=== PATIENT | female | born 1995 | race Caucasian/White ===

== ENCOUNTER 2024-11-05 08:00 | Emergency (ER) | payer MEDICAID, SELFPAY ==
[2024-11-05 09:19] VITALS: BMI 31.3
[2024-11-05 09:27] VITALS: BP 122/89; PULSE 81; RESP 18; TEMP 36.7; O2SAT 98; BMI 31.8
--- NOTE | 2024-11-05 09:31 | XR_ITS ---
Examination: PA lateral chest 2 views TECHNIQUE: Upright PA lateral chest 2 views Exam date and time: November 05, 2024 0943 hours INDICATIONS: Congestion chest pain beginning 10 days ago. FINDINGS: Normal heart size No pneumonia or pulmonary edema Intact osseous structures IMPRESSION: No pneumonia identified
--- NOTE | 2024-11-05 10:40 | EDNOTE_ITS ---
Upper Respiratory Inf. RME/HPI General Chief Complaint: Flu Like Symptoms Stated Complaint: CXP/CONGESTION/RUNNY NOSE/EPPS FOR 10 DAYS Time Seen by Provider: 11/05/24 09:28 Arrival date/time: 11/05/24 08:00 29-year-old female with no significant medical problems and no chance presents the emergency department complaint of cough, congestion, runny nose, body aches and sore throat patient for symptoms ongoing for the last 10 days Limitations: no limitations Related Data Home Medications ?Medication ?Instructions ?Recorded ?Confirmed prenat.vits,marek,hvk-atod-iawyn 1 tab PO QDAY 06/28/21 07/25/23 Previous Rx's ?Medication ?Instructions ?Recorded azithromycin 500 mg tablet See Rx Instructions PO .COMPLEX #6 11/05/24 tabs fluconazole 150 mg tablet 150 mg PO Q3D 2 doses #2 tabs 11/05/24 ibuprofen 600 mg tablet 600 mg PO Q6H #30 tabs 11/05/24 Allergies Allergy/AdvReac Type Severity Reaction Status Date / Time amoxicillin [From Augmentin] Allergy Severe Vomiting Verified 11/05/24 09:22 clavulanic acid Allergy Severe Vomiting Verified 11/05/24 09:22 [From Augmentin] latex Allergy Severe Hives Verified 11/05/24 09:22 CAJUN SPICES Allergy Severe HIVES Uncoded 11/05/24 09:22 Review of Systems Review of Systems Systems Reviewed: All systems reviewed, normal except as documented Constitutional Constitutional: Reports system reviewed and no additional complaints, except as documented, Denies fever(s) and Denies headache(s) Eyes Eyes: Reports system reviewed and no additional complaints, except as documented and Denies blurry vision ENT Ears, Nose, Mouth, and Throat: Reports system reviewed and no additional complaints, except as documented, Reports facial pain, Denies headache(s), Reports nasal congestion, Reports nasal discharge, Reports sore throat and Denies throat swelling Cardiovascular Cardiovascular: Reports system reviewed and no additional complaints, except as documented, Denies chest pain and Denies dyspnea Respiratory Respiratory: Reports system reviewed and no additional complaints, except as documented, Denies chest congestion, Denies cough and Denies dyspnea Gastrointestinal Gastrointestinal: Reports system reviewed and no additional complaints, except as documented and Denies abdominal pain Integumentary/Breasts Skin/Breast: Reports system reviewed and no additional complaints, except as documented and Denies rash Neurologic Neurologic: Reports system reviewed and no additional complaints, except as documented, Reports as per HPI and Denies headache(s) Allergic/Immunologic Allergic/Immunologic: Denies throat swelling Past Medical History Past Medical History NEUROLOGIC: Positive Migraine and Head Trauma; Negative Neurological Disorders CARDIAC: Positive Hypertension; Negative Cardiac Disorders or Congestive Heart Failure RESPIRATORY: Positive Bronchitis (ALERGY INDUCTED BRONCHITIS 2008); Negative Chronic Obstructive Pulmonary Disease (COPD) GASTROINTESTINAL: Positive Obesity; Negative Gastrointestinal Disorders, Hepatitis or Colorectal Cancer GENITOURINARY: Positive Genitourinary Disorders (BLADDER INFECTION AND UTI); Negative Renal Disease, Kidney Stones, Polycystic Kidney Disease, Neurogenic B ladder, Inguinal Hernia, Dialysis, Prostate Cancer or Benign Prostatic Hyperplasia REPRODUCTIVE: Positive Previous Pregnancies (3); Negative Breast Cancer, Endometriosis, Genital Herpes, Gonorrhea, Pelvic Inflammatory Disease, Syphilis, Testicular Cancer or Uterine Prolapse MUSCULOSKELETAL: Negative Musculoskeletal Disorders, Bone Cancer or Carpal Tunnel Syndrome ENT: Positive Head Trauma; Negative Cataracts ENDOCRINE: Negative Endocrine Disorders, Diabetes Mellitus Type 1 or Diabetes Mellitus Type 2 HEMATOLOGIC: Positive Anemia; Negative Blood Disorders, Leukemia, Hemophilia, Thalassemia, Sickle Cell Disease or Clotting Problems PSYCHO/SOCIAL: Positive Depression (2020); Negative Psychiatric Problems, Schizophrenia, Recreational Drug Use, Bipolar Disorder, Depression, Anxiety, Behavior Problems, Self-Mutilation, Attention Deficit Disorder, Post Traumatic Stress Disorder or Eating Disorder OTHER HISTORY: Negative Hospitalization, Autoimmune Disease, Down Syndrome, Autism, Developmental Delay, Shingles, Falls, Blood Transfusions, Blood Transfusion Reaction, Anesthesia Reactions, Organ Transplant, Chemotherapy, Radiation Therapy, Hyperbaric Therapy, MRSA, VRSA, Vancomycin-Resistant Enterococci, Human Immunodeficiency Virus (HIV), Chicken Pox, Measles, Mumps, Rubella ([place]ian Measles), Pertussis, Clostridium Difficile, Cancer, Breast Cancer, Cervical Cancer, Colorectal Cancer, Lung Cancer, Ovarian Cancer, Prostate Cancer or Testicular Cancer Family History FAMILY HISTORY: Positive Family Respiratory Disorders (GRANDMOTHER AND MOM - COPD, BROTHERS X2 SLEEP APNEA), Family Cardiac Disorders (BROTHER, HOLE IN HEART), Family Gastrointestinal Problems (MOTHER- DIVERTICULITIS,), Family Cancer (GRANDMOTHER-CERVICAL, UNCLE-SKIN, LUNG CANCER), Family Surgery (GRANDMOTHER-HYSTERECTOMY, MOTHER CHOLECYSTECTOMY) and Family Anesthesia Reaction; Negative Family Psychiatric Problems (MOTHER-DEPRESSION ,) Surgical History SURGICAL: Positive Ear Surgery and Tonsillectomy; Negative Cardiac Surgery, Endocrine Surgery, Tympanostomy Tube, Eye Surgery, Nose Surgery, Oral Surgery, Adenoidectomy, Cochlear Implant, Corneal Transplant, Throat Surgery, Abdominal Surgery, Tracheostomy, Gastric Bypass Surgery, Gastrostomy, Bowel Surgery, Nephrectomy, Transurethral Resection, Joint Replacement, Amputation, Open Reduction Internal Fixation, Arthroscopy, Neurologic Surgery, Brain Shunt, Mastectomy, Lumpectomy, Hysterectomy, Tubal Ligation, Section or Organ Transplant Social History SMOKING STATUS: Never smoker ED Exam General Limitations: Present no limitations General appearance: Present alert and in no apparent distress Head Head exam: Present atraumatic, normocephalic and normal inspection Eye Eye exam: Present normal appearance, PERRL and EOMI; Absent conjunctival injection ENT ENT exam: Present normal exam, normal oropharynx and mucous membranes moist Neck Neck exam: Present normal inspection, full ROM and trachea midline Chest Chest inspection: Present normal inspection and symmetric chest wall rise Respiratory Respiratory exam: Present normal lung sounds bilaterally; Absent respiratory distress or wheezes Cardiovascular Cardiovascular exam: Present regular rate, normal rhythm and normal heart sounds Abdominal Exam Abdominal exam: Present soft and normal bowel sounds; Absent distention, tenderness, guarding, rebound or rigidity Extremities Exam Extremities exam: Present normal inspection and full ROM Back Exam Back exam: Present normal inspection and full ROM Neurological Exam Neurological exam: Present alert, oriented X3 and CN II-XII intact Psychiatric Psychiatric exam: Present normal affect and normal mood Skin Skin exam: Present warm, dry, intact and normal color Course Quality Measures none Orders Category Date Time Status Bedside COVID-19 Antigen Test NOW Care 11/05/24 09:31 Completed Bedside Influenza A&B Antigen Test NOW Care 11/05/24 09:31 Completed XR chest 2V Stat Exams 11/05/24 09:31 Completed Vital Signs Vital signs: Vital Signs Temperature 98.0 F 11/05/24 09:27 Pulse Rate 81 11/05/24 09:27 Respiratory Rate 18 11/05/24 09:27 Blood Pressure 122/89 H 11/05/24 09:27 Pulse Oximetry (%) 98 11/05/24 09:27 Oxygen Delivery Method Room Air 11/05/24 09:27 O2 saturation 98% room air within normal limits Upper Respiratory Infection MDM Narrative MDM Narrative:: 29-year-old female with no significant medical problems and no chance presents the emergency department complaint of cough, congestion, runny nose, body aches and sore throat patient for symptoms ongoing for the last 10 days On exam patient does not appear ill or toxic patient does not appear in any acute distress Patient checked for flu and COVID both of which are negative Chest x-ray obtained no acute infiltrates noted Patient does report sinus congestion and sinus pain I do believe patient may have sinusitis patient be treated course of antibiotics incidentally patient reports that she has a yeast infection and patient be treated for that as well Patient discharged home in no distress to follow-up with primary care doctor in the next 24 to 48 hours and for any worsening symptoms to return to the ER immediately Patient data External records reviewed:: [facility] previous records Clinical information provided by:: patient Social determinants that could affect healthcare access:: none Patient has the following chronic illnesses:: None How is presenting disease/condition affected by chronic disease/condition?: no chronic disease Evaluation data The following diagnostics were reviewed and interpreted by me:: lab results and radiology exam(s) Lab and/or radiology exams considered but not ordered:: Labs and radiology obtained Interpretation Summary: Reviewed by me Medications / Prescriptions Medications or Prescriptions considered but not ordered:: Given Medication administrations:: Given Consultations Consultation(s) initiated? (list below): No Diagnosis Upper Respiratory Differential Diagnosis: upper respiratory infection, sinusitis, viral infection and pharyngitis Most likely diagnosis given after review of the tests above:: Sinusitis Admission Indicated Admission indicated?: not indicated Admission Request Was there a request for admission?: No Disposition Plan Disposition Plan: Discharge Discharge Attestation Discharge Attestation: The patient and all family members were given an opportunity to ask questions and understood the discharge instructions. Discharge instructions specifically effects, indications for sooner follow up or return to the emergency department, and the expected course of current diagnosis. Patient condition: Stable Discharge Plan Plan Patient Disposition: HOME (Self Care) Disposition Comment: stable Prescriptions/Referrals Prescriptions/Med Rec: New ibuprofen 600 mg tablet 600 mg PO Q6H Qty: 30 0RF azithromycin 500 mg tablet See Rx Instructions .ROUTE .COMPLEX Qty: 6 0RF Rx Instructions: take 500 mg today (day 1), then 250 mg for 4 days (days 2-5) fluconazole 150 mg tablet 150 mg PO Q3D Qty: 2 0RF Rx Instructions: may repeat second dose 72 hrs after first dose if symptoms persist No Action prenat.vits,marek,bdx-ride-ofjdh Tablet 1 tab PO QDAY Referrals: Jared Nguyen MD [Primary Care Provider] - 11/06/24 Problem List Clinical Impression: Sinusitis, Yeast infection Patient/Caregiver Discharge Instructions Education Materials: Self-Care for Sinusitis Additional Instructions: Please follow up with your primary care doctor in the next 24-48hrs for any worsening symptoms return here immediately Print Language: Wolof Stand Alone Forms: Radha Award Info., Work/School Release, Patient Portal Info Letter PA/ENGRAVER TENDER Supervising Physician PA/ENGRAVER TENDER Supervising Physician: Dr. Aldana
== END 2024-11-05 10:55 | disposition home or self-care (01) ==
PROVIDERS: Emergency Provider Emergency Medicine; PCP Family Medicine
DX: J32.9 Chronic sinusitis, unspecified (principal); B37.9 Candidiasis, unspecified
CPT/HCPCS: 71046; 87400; 87811; 99283

== ENCOUNTER 2025-06-06 11:04 | Emergency (ER) | payer MEDICAID, SELFPAY ==
[2025-06-06 11:15] VITALS: BP 118/78; PULSE 76; RESP 17; TEMP 36.9; O2SAT 97; BMI 34.2
--- NOTE | 2025-06-06 11:23 | EDNOTE_ITS ---
ED Headache RME/HPI General Chief Complaint: Headache Stated Complaint: EPPS X 9 days, nausea Time Seen by Provider: 06/06/25 11:11 Source: patient Arrival date/time: 06/06/25 11:04 29-year-old female with a history of migraines presents to the emergency room with a chief complaint of nausea, and a headache x 9 days. Mode of arrival: ambulatory Limitations: no limitations Related Data Home Medications ?Medication ?Instructions ?Recorded ?Confirmed prenat.vits,marek,[id number] 1 tab PO QDAY 06/28/21 07/25/23 Previous Rx's ?Medication ?Instructions ?Recorded azithromycin 500 mg tablet See Rx Instructions PO .COM PLEX #6 11/05/24 tabs fluconazole 150 mg tablet 150 mg PO Q3D 2 doses #2 tab s 11/05/24 ibuprofen 600 mg tablet 600 mg PO Q6H #30 tabs 11/05 Allergies Allergy/AdvReac Type Severity Reaction Status Date / Time amoxicillin (From Augmentin) Allergy Severe Vomiting Verified 06/06/25 11:09 clavulanic acid (From Allergy Severe Vomiting Verified 06/06/25 11:09 Augmentin) latex Allergy Severe Hives Verified 06/06/25 11:09 CAJUN SPICES Allergy Severe HIVES Uncoded 06/06/25 11:09 Review of Systems Review of Systems Systems Reviewed: All systems reviewed, normal except as documented Constitutional Constitutional: Reports system reviewed and no additional complaints, except as documented, Denies fatigue, Denies fever(s) and Reports headache(s) Eyes Eyes: Reports system reviewed and no additional complaints, except as documented, Denies blurry vision and Denies change in vision ENT Ears, Nose, Mouth, and Throat: Reports system reviewed and no additional complaints, except as documented, Denies otalgia, Reports headache(s), Denies n jesus congestion, Denies throat swelling and Denies vertigo Cardiovascular Cardiovascular: Reports system reviewed and no additional complaints, except as documented, Denies chest pain, Denies dyspnea and Denies dyspnea on exertion Respiratory Respiratory: Reports system reviewed and no additional complaints, except as documented, Denies chest congestion, Denies cough, Denies dyspnea, Denies dyspnea on exertion and Denies wheezing Gastrointestinal Gastrointestinal: Reports system reviewed and no additional complaints, except as documented, Denies abdominal pain, Denies cramping, Reports nausea and Denies vomiting Genitourinary Genitourinary: Reports system reviewed and no additional complaints, except as documented Musculoskeletal Musculoskeletal: Reports system reviewed and no additional complaints, except as documented and Denies back pain Integumentary/Breasts Skin/Breast: Reports system reviewed and no additional complaints, except as documented and Denies wounds Neurologic Neurologic: Reports system reviewed and no additional complaints, except as documented, Denies confusion, Reports headache(s), Denies lack of coordination and Denies vertigo Psychiatric Psychiatric: Reports system reviewed and no additional complaints, except as documented, Denies anxiety, Denies confusion, Denies depression, Denies paranoia, Denies suicidal ideation and Denies tactile hallucinations Endocrine Endocrine: Reports system reviewed and no additional complaints, except as documented and Denies fatigue Hematologic/Lymphatic Hematologic/Lymphatic: Reports system reviewed and no additional complaints, except as documented and Denies lymphadenopathy Allergic/Immunologic Allergic/Immunologic: Reports system reviewed and no additional complaints, except as documented, Denies throat swelling, Denies urticaria and Denies wheezing Past Medical History Past Medical History NEUROLOGIC: Positive Migraine and Head Trauma; Negative Neurological Disorders CARDIAC: Positive Hypertension; Negative Cardiac Disorders or Congestive Heart Failure RESPIRATORY: Positive Bronchitis (ALERGY INDUCTED BRONCHITIS 2008); Negative Chronic Obstructive Pulmonary Disease (COPD) GASTROINTESTINAL: Positive Obesity; Negative Gastrointestinal Disorders, Hepatitis or Colorectal Cancer GENITOURINARY: Positive Genitourinary Disorders (BLADDER INFECTION AND UTI); Negative Renal Disease, Kidney Stones, Polycystic Kidney Disease, Neurogenic Bladder, Inguinal Hernia, Dialysis, Prostate Cancer or Benign Prostatic Hyperplasia REPRODUCTIVE: Positive Previous Pregnancies (3); Negative Breast Cancer, Endometriosis, Genital Herpes, Gonorrhea, Pelvic Inflammatory Disease, Syphilis, Testicular Cancer or Uterine Prolapse MUSCULOSKELETAL: Negative Musculoskeletal Disorders, Bone Cancer or Carpal Tunnel Syndrome ENT: Positive Head Trauma; Negative Cataracts ENDOCRINE: Negative Endocrine Disorders, Diabetes Mellitus Type 1 or Diabetes Mellitus Type 2 HEMATOLOGIC: Positive Anemia; Negative Blood Disorders, Leukemia, Hemophilia, Thalassemia, Sickle Cell Disease or Clotting Problems PSYCHO/SOCIAL: Positive Depression (2020); Negative Psychiatric Problems, Schizophrenia, Recreational Drug Use, Bipolar Disorder, Depression, Anxiety, Behavior Problems, Self-Mutilation, Attention Deficit Disorder, Post Traumatic Stress Disorder or Eating Disorder OTHER HISTORY: Negative Hospitalization, Autoimmune Disease, Down Syndrome, Autism, Developmental Delay, Shingles, Falls, Blood Transfusions, Blood Transfusion Reaction, Anesthesia Reactions, Organ Transplant, Chemotherapy, Radiation Therapy, Hyperbaric Therapy, MRSA, VRSA, Vancomycin-Resistant Enterococci, Human Immunodeficiency Virus (HIV), Chicken Pox, Measles, Mumps, Rubella (Cypriot Measles), Pertussis, Clostridium Difficile, Cancer, Breast Cancer, Cervical Cancer, Colorectal Cancer, Lung Cancer, Ovarian Cancer, Prostate Cancer or Testicular Cancer Family History FAMILY HISTORY: Positive Family Respiratory Disorders (GRANDMOTHER AND MOM - COPD, BROTHERS X2 SLEEP APNEA), Family Cardiac Disorders (BROTHER, HOLE IN HEART), Family Gastrointestinal Problems (MOTHER- DIVERTICULITIS,), Family Cancer (GRANDMOTHER-CERVICAL, UNCLE-SKIN, LUNG CANCER), Family Surgery (GRANDMOTHER-HYSTERECTOMY, MOTHER CHOLECYSTECTOMY) and Family Anesthesia Reaction; Negative Family Psychiatric Problems (MOTHER-DEPRESSION ,) Surgical History SURGICAL: Positive Ear Surgery and Tonsillectomy; Negative Cardiac Surgery, Endocrine Surgery, Tympanostomy Tube, Eye Surgery, Nose Surgery, Oral Surgery, Adenoidectomy, Cochlear Implant, Corneal Transplant, Throat Surgery, Abdominal Surgery, Tracheostomy, Gastric Bypass Surgery, Gastrostomy, Bowel Surgery, Nephrectomy, Transurethral Resection, Joint Replacement, Amputation, Open Reduction Internal Fixation, Arthroscopy, Neurologic Surgery, Brain Shunt, Mastectomy, Lumpectomy, Hysterectomy, Tubal Ligation, Section or Organ Transplant Social History SMOKING STATUS: Never smoker ED Exam General Limitations: Present no limitations General appearance: Present alert and in no apparent distress Head Head exam: Present atraumatic Eye Eye exam: Present normal appearance, PERRL and EOMI ENT ENT exam: Present normal exam, normal oropharynx and mucous membranes moist Neck Neck exam: Present normal inspection, full ROM and trachea midline Chest Chest inspection: Present normal inspection and symmetric chest wall rise Respiratory Respiratory exam: Present normal lung sounds bilaterally Cardiovascular Cardiovascular exam: Present regular rate, normal rhythm and normal heart sounds Abdominal Exam Abdominal exam: Present soft and normal bowel sounds Extremities Exam Extremities exam: Present normal inspection and full ROM Back Exam Back exam: Present normal inspection and full ROM Neurological Exam Neurological exam: Present alert, oriented X3, CN II-XII intact, normal gait and reflexes normal Expanded Neurological Exam Patient oriented to: Present person, place and time Speech: Present fluid speech Cranial nerves: Normal: EOM function (II, III, IV, ) Cerebellar function: Normal: finger to nose Cerebellar function: Present normal gait Motor strength - LUE: 5/5 Motor strength - RUE: 5/5 Motor strength - LLE: 5/5 Motor strength - RLE: 5/5 Coma scale eye opening: spontaneous Coma scale motor response: obeys commands Coma scale verbal response: oriented Coma scale total: 15 Psychiatric Psychiatric exam: Present normal affect and normal mood Skin Skin exam: Present warm, dry, intact and normal color Course Quality Measures none Orders Category Date Time Status CT head/brain wo con Stat Exams 06/06/25 11:25 Completed DiphenhydrAMINE [Benadryl] Med 06/06/25 11:22 Discontinued 25 mg PO X1 ONE Ketorolac Inj [Toradol Inj] Med 06/06/25 11:22 Discontinued 30 mg IM X1 ONE Ketorolac Inj [Toradol Inj] Med 06/06/25 13:01 Discontinued 30 mg IM X1 ONE Metoclopramide [Reglan] Med 06/06/25 11:23 Discontinued 10 mg PO X1 ONE SUMAtriptan INJ [Imitrex Inj] Med 06/06/25 11:22 Discontinued 6 mg SC X1 ONE Vital Signs Vital signs: Vital Signs Temperature 98.5 F 06/06/25 11:15 Pulse Rate 76 06/06/25 11:15 Respiratory Rate 17 06/06/25 11:15 Blood Pressure 118/78 06/06/25 11:15 Pulse Oximetry (%) 97 06/06/25 11:15 Oxygen Delivery Method Room Air 06/06/25 11:15 Headache MDM Narrative MDM Narrative:: 29-year-old female with a history of migraines presents to the emergency room with a chief complaint of nausea, and a headache x 9 days. Patient is hemodynamically stable and in no apparent distress Physical examination shows a normal neurological exam. Pupils are PERRLA EOMs are intact the patient is a GCS of 15 alert and oriented x 3. CT of the head and brain was completed and was negative for any acute hemorrhage mass effect or midline shift. Medication for her migraines were given and the patient was reevaluated and 1 hour with significant improvement to her symptoms Patient was discharged and educated to follow-up with primary care provider in the next 24 to 48 hours and return to the emergency room for any evidence of worsening signs or symptoms Patient data External records reviewed:: [facility] previous records Clinical information provided by:: patient Social determinants that could affect healthcare access:: none Patient has the following chronic illnesses:: Migraines How is presenting disease/condition affected by chronic disease/condition?: caused by Evaluation data The following diagnostics were reviewed and interpreted by me:: lab results and radiology exam(s) Lab and/or radiology exams considered but not ordered:: Labs and radiology exams considered in Interpretation Summary: CT of the head and brain-Findings: No significant ventricular enlargement. Intra-axial or extra-axial hemorrhage density is not seen. No mass effect or midline shift Basal cisterns are not remarkable. Fourth ventricle is midline. Cranial vault intact. Impression: Negative for acute hemorrhage, mass effect or midline shift Advise clinical correlation follow-up accordingly Medications / Prescriptions Medications or Prescriptions considered but not ordered:: Medication given Medication administrations:: Medication Administration History Discontinued Medications Diphenhydramine HCl (Diphenhydramine 25 Mg Capsule) 25 mg PO X1 ONE Stop: 06/06/25 11:23 Last Admin: 06/06/25 11:52 Dose: 25 mg Documented By: VAUGHN Ketorolac Tromethamine (Ketorolac Inj 60 Mg/2 Ml Vial) 30 mg IM X1 ONE Stop: 06/06/25 11:23 Last Admin: 06/06/25 11:55 Dose: Not Given Documented By: VAUGHN Non-Admin Reason: Discontinued Ketorolac Tromethamine (Ketorolac Inj 60 Mg/2 Ml Vial) 30 mg IM X1 ONE Stop: 06/06/25 13:02 Metoclopramide HCl (Metoclopramide 5 Mg Tablet) 10 mg PO X1 ONE Stop: 06/06/25 11:24 Last Admin: 06/06/25 11:53 Dose: 10 mg Documented By: VAUGHN Sumatriptan Succinate (Sumatriptan Inj 6 Mg/0.5 Ml Vial) 6 mg SC X1 ONE Stop: 06/06/25 11:23 Last Admin: 06/06/25 11:54 Dose: 6 mg Documented By: VAUGHN Medication given Consultations Consultation(s) initiated? (list below): No Diagnosis Differential diagnosis headache: migraine, tension headache, subarachnoid hemorrhage and headache Most likely diagnosis given after review of the tests above:: Migraine Admission Indicated Admission indicated?: not indicated Admission Request Was there a request for admission?: No Disposition Plan Disposition Plan: Discharge Discharge Attestation Discharge Attestation: The patient and all family members were given an opportunity to ask questions and understood the discharge instructions. Discharge instructions specifically effects, indications for sooner follow up or return to the emergency department, and the expected course of current diagnosis. Patient condition: Stable Discharge Plan Plan Patient Disposition: HOME (Self Care) Discharge Disposition comment: stable Prescriptions/Referrals Prescriptions/Med Rec: No Action prenat.vits,marek,[id number] Tablet 1 tab PO QDAY ibuprofen 600 mg tablet 600 mg PO Q6H Qty: 30 0RF azithromycin 500 mg tablet See Rx Instructions .ROUTE .COMPLEX Qty: 6 0RF Rx Instructions: take 500 mg today (day 1), then 250 mg for 4 days (days 2-5) fluconazole 150 mg tablet 150 mg PO Q3D Qty: 2 0RF Rx Instructions: may repeat second dose 72 hrs after first dose if symptoms persist Referrals: No Primary/Family,Physician [Primary Care Provider] - In 1 week Problem List Clinical Impression: Migraine Patient/Caregiver Discharge Instructions Education Materials: ED Headache, Migraine, Classic Additional Instructions: Please follow-up with your primary care provider in the next 24 to 48 hours Medication was given to your migraine with some help to your symptoms A CT of your head and brain was completed and was negative for any acute findings. For any evidence of worsening signs or symptoms return to the emergency room immediately. Print Language: [place] Stand Alone Forms: Radha Award Info., Patient Portal Info Letter PA/TSERING Supervising Physician ANUPAMA/TSERING Supervising Physician: Dr. Groves
--- NOTE | 2025-06-06 11:25 | XR_ITS ---
Examination: CT brain head without contrast. 2-D sagittal coronal reconstructions Date and time of exam:June 06, 2025 1139 hours Comparison 08/23/2016 INDICATIONS: Intermittent severe head pain one week CTDI: vol (mGy):48.5 DLP: (mGycm):935 Technique: Multiple CT axial sections of the brain have been obtained, 5 mm slice thickness. Contrast has not been administered. 2-D sagittal, coronal reconstructions have been obtained Low dose protocols were performed. One or more of the following dose reduction techniques were used; automated exposure control, adjustment of the mA and/or KV according to patient size, use of iterative reconstruction technique. Findings: No significant ventricular enlargement. Intra-axial or extra-axial hemorrhage density is not seen. No mass effect or midline shift Basal cisterns are not remarkable. Fourth ventricle is midline. Cranial vault intact. Impression: Negative for acute hemorrhage, mass effect or midline shift Advise clinical correlation follow-up accordingly
[2025-06-06] MEDS: METOCLOPRAMIDE 5 MG TABLET 10 MG PO (11:53)
[2025-06-06] MEDS: SUMAtriptan INJ 6 MG/0.5 ML VIAL SC (11:54)
[2025-06-06] MEDS: KETOROLAC INJ 60 MG/2 ML VIAL 30 MG IM (13:10)
== END 2025-06-06 13:27 | disposition home or self-care (01) ==
PROVIDERS: Emergency Provider Emergency Medicine
DX: G43.909 Migraine, unspecified, not intractable, without status migrainosus (principal)
CPT/HCPCS: 70450; 96372; 99283; J1885; J3030; A9270